=== PATIENT | male | born 1980 | race Caucasian/White ===

== ENCOUNTER 2016-05-30 08:08 | Emergency (ER) | payer OTHER ==
[~2016-05-30] VITALS: Wt 74.0 kg
--- NOTE | 2016-05-30 09:24 | RADRPT ---
PROCEDURE: XR Hand. CLINICAL INDICATION: Trauma with pain at the radial aspect of the hand. TECHNIQUE: Three views of the left hand were obtained. COMPARISON: None available. FINDINGS: There is a comminuted and mildly displaced fracture at the base of the first metacarpal that extends to the carpal-metacarpal articular surface. There is edema within the surrounding soft tissues. T here is no radiopaque foreign body. The osseous mineralization is within normal limits. IMPRESSION: 1. Comminuted and mildly displaced fracture at the base of the first metacarpal that extends to the carpometacarpal articular surface. RPTAT: GG .Felipe Baumann MD, MD Date Time Electronically viewed and signed by .Felipe Baumann MD, on 05/30/2016 09:24 .P/
--- NOTE | 2016-05-30 09:26 | RADRPT ---
PROCEDURE: XR left Wrist. CLINICAL INDICATION: Left wrist pain. TECHNIQUE: AP, lateral, oblique, and scaphoid views of the left wrist were performed. COMPARISON: None available. FINDINGS: A comminuted and mildly displaced fracture at the base of the first metacarpal that extends to the C MC articular surface is again seen and there is edema within the surrounding soft tissues. The carpu s and wrist joint are intact with no additional acute fracture dislocation identified. The alignmen t is otherwise normal and the osseous mineralization is within normal limits. IMPRESSION: 1. Comminuted and mildly displaced fracture at the base of the first metacarpal that extends to the CMC articular surface. 2. No additional acute fracture dislocation. RPTAT: GG .Felipe Baumann MD, Date Time Electronically viewed and signed by .Felipe Baumann MD, MD on 05/30/2016 09:26 .P/
[2016-05-30] MEDS ORDERED: HYDR-906 PO (10:07)
[2016-05-30] MEDS ORDERED: IBUP-1542 PO (10:07)
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
== END 2016-05-30 10:34 | disposition home or self-care (01) ==
LOC: FTE 08:08
DX: S62.202A Unspecified fracture of first metacarpal bone, left hand, initial encounter for closed fracture (principal); Y04.0XXA Assault by unarmed brawl or fight, initial encounter
CPT/HCPCS: 29125; 73110; 73130; Z7502

== ENCOUNTER 2016-09-17 16:18 | Emergency (ER) | payer OTHER ==
[~2016-09-17] VITALS: Ht 165.1 cm; Wt 71.0 kg
[~2016-09-17 16:18] MED LIST: HYDR-906 PO; IBUP-1542 PO
[2016-09-17 16:19] VITALS: Ht 165.1 cm; Wt 71.0 kg
[2016-09-17] MEDS ORDERED: IBUPROFEN 600 MG TAB PO ONE (17:00)
--- NOTE | 2016-09-17 17:27 | RADRPT ---
PROCEDURE: XR left hand. CLINICAL INDICATION: Hand pain TECHNIQUE: Three views are available for review. COMPARISON: 05/30/2016 FINDINGS: There is an old healed first metacarpal carpal base fracture. The osseous structures are otherwise normal in mineralization, architecture and alignment. No acute fracture or osseous lesion is identified. The joints are unremarkable. No erosions are identified. The soft tissues are unremarkable. IMPRESSION: Old healed first metacarpal base fracture Otherwise unremarkable examination RPTAT: [facility] .Sebastien Marcum MD, Date Time Electronically viewed and signed by .Sebastien Marcum MD, on 09/17/2016 17:26 .B/
[2016-09-17] MEDS ORDERED: HYDR-906 PO (17:39)
[2016-09-17] MEDS ORDERED: IBUP-1542 PO (17:39)
--- NOTE | 2016-09-17 21:29 | ERD ---
ER Documentation Chief Complaint Date/Time DATE: 09/17/16 TIME: 21:24 Chief Complaint LEFT HAND BROKEN IN MAY STILL NOT FEELING BETTER HPI This is a 35-year-old male presents to the ER with left hand pain that started today when he was trying to move something heavy. Patient broke his first digit back in May. He did is an orthopedic doctor and his cast was placed for one and half months. Patient states that since cast came off he does not feel like his hand is back to normal. He denies any numbness or tingling to the hands. He does admit to throbbing pain that is worse with movement. Pain is nonradiating. He has not tried for the pain. ROS 12 point review of systems was done, all negative except per HPI. Medications Home Meds Active Scripts Hydrocodone/Acetaminophen ([place] 5-325 Tablet) 1 Each Tablet, 1 EACH PO Q6 for 3 Days, TAB Prov:EMILY,DOMINIQUE C 09/17/16 Ibuprofen* (Motrin*) 600 Mg Tab, 600 MG PO Q6, #30 TAB Prov:EMILY,DOMINIQUE C 09/17/16 Hydrocodone/Acetaminophen ([place] 5-325 Tablet) 1 Each Tablet, 1 TAB PO Q6H Y for PAIN, #20 TAB Prov:EMILY,DOMINIQUE C 05/30/16 Ibuprofen* (Motrin*) 600 Mg Tab, 600 MG PO Q6, #30 TAB Prov:EMILY,DOMINIQUE C 05/30/16 Allergies Allergies: Coded Allergies: No Known Allergy (Unverified , 09/17/16) PMhx/Soc History of Surgery: Yes (tonsilectomy ) Hx Alcohol Use: No Hx Substance Use: No Hx Tobacco Use: No Smoking Status: Never smoker Physical Exam Vitals Vital Signs Date Time Temp Pulse Resp B/P Pulse Ox O2 Delivery O2 Flow Rate FiO2 09/17/16 16:19 98.5 111 18 133/71 98 Physical Exam GENERAL: The patient is well developed and appropriate for usual state of health , in no apparent distress. HEENT: Atraumatic. CHEST: Clear to auscultation bilaterally. There are no rales, wheezes or rhonchi. HEART: Regular rate and rhythm. No murmurs, clicks, rubs or gallops. EXTREMITIES: Left hand: Patient is tender to palpation near the base of the first metacarpal. He has full range of motion of the first digit. DTS and DTP are intact. Neurovascularly intact. Normal capillary refill. She has full nonpainful range of motion of the wrist. No snuffbox tenderness. NEURO: Alert and oriented Results 24 hrs Current Medications Medications (Trade) Dose Ordered Sig/Kim Route PRN Reason Start Time Stop Time Status Last Admin Dose Admin Ibuprofen (Motrin) 600 mg ONCE ONCE PO 09/17/16 17:00 09/17/16 17:01 DC 09/17/16 16:48 Procedures/MDM This is a 35-year-old male presents to the ER for continued left hand pain. Patient does have an old fracture, which per x-ray has healed appropriately. Patient does have full range of motion of his first digit. Suspicion for ligament or tendon injury is low. She was afebrile and well-appearing. I doubt deep space infection or osteomyelitis. Patient likely overused his thumb while he was try to lift something heavy today. She will be sent home with ibuprofen. He was told to follow-up with his orthopedic doctor as soon as possible. I shared my medical decision making with the patient he understands and agrees with plan. Departure Diagnosis: Primary Impression: Pain of hand Condition: Stable Patient Instructions: Treating Hand Fractures Additional Instructions: Call your primary care doctor TOMORROW for an appointment during the next 1-2 days.See the doctor sooner or return here if your condition worsens before your appointment time. DOMINIQUE DIAZ September 17, 2016 21:29
== END 2016-09-17 17:45 | disposition home or self-care (01) ==
LOC: FTE 16:18
DX: M79.642 Pain in left hand (principal)
CPT/HCPCS: 73130; Z7502; Z7610